=== PATIENT | female | born 1995 | race Asian ===

== ENCOUNTER 2020-01-18 18:25 | Emergency (ER) | payer BC, SELFPAY ==
[2020-01-18 18:28] VITALS: BP 131/79; PULSE 91; RESP 16; TEMP 37; O2SAT 100
--- NOTE | 2020-01-18 18:44 | ED.URI ---
HPI - URI/Sore Throat General Chief Complaint: Upper Respiratory Infection Stated Complaint: headache/sore throat/swollen glands/neck pain Time Seen by Provider: 01/18/20 18:40 Source: patient and RN notes reviewed Mode of arrival: ambulatory Limitations: no limitations History of Present Illness HPI Narrative: Patient presents today with a 1 month history of sore throat, headache, swollen glands, neck pain. Denies fever. At the beginning of her symptoms she was treated with 10 days of amoxicillin, but states towards the end of her course she did have a rash/reaction to it. She was seen yesterday at a [facility] clinic where a strep test was negative. [facility] will send swab off for culture. Patient's mother sent her here today for a mono test. She has tried no medication for symptoms prior to arrival. MD elicited complaint: sore throat Related Data Home Medications Medication Instructions Recorded Confirmed Control Pills 01/18/20 Allergies Allergy/AdvReac Type Severity Reaction Status Date / Time amoxicillin Allergy Rash Verified 01/18/20 18:38 Review of Systems Review of Systems: Narrative: CONSTITUTIONAL: Denies body aches, fever, chills, or sweats. Fatigue EYES: Denies visual changes, redness, or discharge. ENT: Denies rhinorrhea, congestion, or otalgia.+ Sore throat CARDIOVASCULAR: Denies chest pain, palpitations, or edema. RESPIRATORY: Denies cough or dyspnea. GASTROINTESTINAL: Denies abdominal pain, nausea, vomiting, or diarrhea. GENITOURINARY: Denies dysuria or hematuria. SKIN: Denies rash, itching, or wounds. Swollen glands of the neck MUSCULOSKELETAL: Denies back pain, joint pain. + Neck pain NEUROLOGIC: Denies numbness, tingling, or weakness.+ Headache PSYCH: Denies depression or anxiety. PMFSH Comments At time of signature, I have reviewed and agree with nursing past medical, surgical, social and family history unless otherwise noted. Please see nursing chart for further information. There is no relevant family history pertinent to the presenting complaint Exam Narrative: Exam Narrative: GENERAL: Well-appearing, well-nourished, and in no acute distress. HEAD: Normocephalic, atraumatic. EYES: EOMI. No redness or drainage. Conjunctivae normal. ENT: Mucous membranes pink and moist. Nares clear. No rhinorrhea. TMs normal bilaterally. Throat erythematous and mildly edematous with white exudate on the left tonsil. Uvula midline. NECK: Normal AROM. Supple. Left anterior and posterior cervical chain lymphadenopathy. CHEST: No respiratory distress. Clear to auscultation. HEART: Regular rate and rhythm. No murmur appreciated. Normal peripheral pulses. ABDOMEN: Soft, nontender, nondistended, normal active bowel sounds. MUSCULOSKELETAL: No bony tenderness. EXTREMITIES: Normal range of motion. No edema. SKIN: Warm, dry, no rash. NEURO: No focal deficits. Alert and oriented x3. Gait steady. PSYCH: Normal affect. No signs of depression or anxiety. Course Vital Signs Vital signs: Vital Signs Temperature 98.6 F 01/18/20 18:28 Pulse Rate 91 01/18/20 18:28 Respiratory Rate 16 01/18/20 18:28 Blood Pressure 131/79 01/18/20 18:28 Pulse Oximetry 100 01/18/20 18:28 Temperature 98.6 F 01/18/20 18:28 Pulse Rate 91 01/18/20 18:28 Respiratory Rate 16 01/18/20 18:28 Blood Pressure 131/79 01/18/20 18:28 Pulse Oximetry 100 01/18/20 18:28 Reviewed. Pt has been instructed to follow up with her PCP regarding her elevated blood pressure today. MDM - URI/Sore Throat Differential Diagnosis Differential diagnosis: Likely upper respiratory infection, viral infection, pharyngitis and other (Mononucleosis, strep throat) Lab Data Attestation: I reviewed the patient's lab results. Labs: [place] Screen Negative (Reference Range: Negative) Critical Care Time Critical Care Time Critical Care Time: No Dischar
== END 2020-01-18 19:07 | disposition home or self-care (01) ==
PROVIDERS: Emergency Provider Nurse Practitioner
DX: J02.9 Acute pharyngitis, unspecified (principal)
CPT/HCPCS: 86308; 99213; G0463

== ENCOUNTER 2021-07-21 17:34 | Emergency (ER) | payer OTHER, SELFPAY ==
[2021-07-21 17:53] VITALS: BP 125/75; PULSE 71; RESP 12; TEMP 36.7; O2SAT 100
--- NOTE | 2021-07-21 18:53 | ED.NAVMDI ---
HPI - Nausea/Vomiting/Diarrhea General Chief complaint: Nausea/Vomiting/Diarrhea Stated complaint: stomach pain/vomiting Source: patient and RN notes reviewed Limitations: no limitations History of Present Illness HPI Narrative: The vaccinated patient, previously mostly healthy non-smoker/rare drinker, presents with abdominal discomfort. Patient notes a very short onset a couple hours ago of first diarrhea x1 followed by nonbilious emesis x2. This is associated with preceding infraumbilical/suprapubic cramping. No blood, fever, travel, sick family, prior surgeries, vaginal discharge, frequency/urgency/dysuria;. No loss of taste/smell, CP, wheezing/sneezing, S OB; they declined later PCR testing. Dipstick urinalysis is noncontributory; discussed with patient since it is so very early in the course of the illness to return to hospital if worsens in any way. Related Data Allergies Allergy/AdvReac Type Severity Reaction Status Date / Time amoxicillin Allergy Rash Verified 07/21/21 17:55 Review of Systems Review of Systems: General/Constitutional: No weight loss,fever Eyes: N0: Redness,discharge Ears/Nose/Throat: No: Epistaxis,ear discharge Respiratory: Denies: Hemoptysis Gastrointestinal: Bleeding-rectal, REPORT vomiting Skin: No Lumps, eruption Neurologic: No Focal Weakness,Sz Hematologic: Denies: Petechiae/Purpura Psychiatric: No: Suicida ideationl All Other Systems: Reviewed and Negative PMFSH Comments At time of signature, agree with nursing past medical, surgical, social and family history. There is no relevant family history pertinent to the presenting complaint Exam Narrative: General Appearance: Well appearing, Conjunctiva clear Mouth/Throat: Normal appearing, Normal lips, Supple Respiratory: Airway patent, No respiratory distress Cardiovascular: RRR Abdomen: Soft, Non-tender, No massess, No organomegaly (no rebound/ surgical signs), Hyperactive bowel sounds Musculoskeletal: Full ROM Skin: Warm, Dry Neurological: A&O x3, CN II-X intact Psychiatric: Normal mood, Normal affect Course Vital Signs Vital signs: Vital Signs Temperature 98.0 F 07/21/21 17:53 Pulse Rate 71 07/21/21 17:53 Respiratory Rate 12 07/21/21 17:53 Blood Pressure 125/75 07/21/21 17:53 Pulse Oximetry 100 07/21/21 17:53 Temperature 98.0 F 07/21/21 17:53 Pulse Rate 71 07/21/21 17:53 Respiratory Rate 12 07/21/21 17:53 Blood Pressure 125/75 07/21/21 17:53 Pulse Oximetry 100 07/21/21 17:53 MDM - Nausea/Vomiting/Diarrhea Lab Data Labs: UCG Bedside Result Negative Reference Range: Negative Urine Glucose Negative Reference Range: Negative Urine Bilirubin Negative Reference Range: Negative Urine Ketone Negative Reference Range: Negative Urine Specific [place] 1.025 Reference Range:1.001-1.035 Urine Blood Negative Reference Range: Negative * * Urine pH 6.5 Reference Range: 5.0-9.0 Urine Protein Negative Reference Range: Negative Urine Urobilinogen 0.2 Reference Range: 0.2-1.0 Urine Nitrate Negative Reference Range: Negative Urine Leukocyte Negative Reference Range: Negative Urine Color
== END 2021-07-21 19:03 | disposition home or self-care (01) ==
PROVIDERS: Emergency Provider Emergency Medicine
DX: R11.10 Vomiting, unspecified (principal); R19.7 Diarrhea, unspecified
CPT/HCPCS: 81003; 81025; 99213; G0463

== ENCOUNTER 2021-11-22 11:23 | Emergency (ER) | payer OTHER, SELFPAY ==
--- NOTE | 2021-11-22 11:29 | ED.URI ---
HPI - URI/Sore Throat General Chief Complaint: Upper Respiratory Infection Stated Complaint: Covid Sx Time Seen by Provider: 11/22/21 11:33 Source: patient, family, RN notes reviewed and old records reviewed Mode of arrival: ambulatory Limitations: no limitations History of Present Illness HPI Narrative: 26-year-old female presents to the [facility] with complaints of a headache and dry cough since Friday, 3 days. States that her boyfriend tested positive at home for COVID-19. She did have COVID herself in August 2020. She is COVID vaccinated and flu vaccinated. She has only taken Tylenol for her headache. Denies any fevers, body aches, nausea vomiting or diarrhea. Denies any chest pain or abdominal pain. Does not appear acutely ill. Denies any blurry vision change in vision. No neurologic symptoms other than a headache Patient states that she is and sees Dr. Stewart. Patient's due date is June 07, 2022 patient is not having any concerns at this time. Discussed with patient that if she is she must go directly to the emergency room which she verbalized understanding. Patient is just wanting a COVID test MD elicited complaint: other (headache) Related Data Home Medications Medication Instructions Recorded Confirmed [id number] See Rx Instructions .ROUTE .COMPLEX 11/22/21 11/22/21 [Daily ] Allergies Allergy/AdvReac Type Severity Reaction Status Date / Time amoxicillin Allergy Rash Verified 11/22/21 11:38 Review of Systems Review of Systems: All systems reviewed & are unremarkable except as noted in HPI and below Constitutional: Constitutional: Reports no additional constitutional complaints, Denies chills, Denies fatigue, Denies fever(s) and Denies headache(s) Eyes: Eyes: Reports no additional eye complaints, Denies change in vision and Denies photophobia ENT: Reports system reviewed and no additional complaints, except as documented, Denies vertigo, Denies dizziness, Denies headache(s), Denies nasal congestion and Denies sore throat Cardiovascular: Cardiovascular: Reports no additional cardiovascular complaints, Denies chest pain, Denies syncope, Denies rapid heart rate and Denies dyspnea Respiratory: Respiratory: Reports as per HPI, Reports cough (Dry), Denies dyspnea and Denies wheezing Gastrointestinal: Gastrointestinal: Reports no additional gastrointestinal complaints, Denies abdominal pain, Denies diarrhea, Denies nausea and Denies vomiting Musculoskeletal: Musculoskeletal: Reports no additional musculoskeletal complaints, Denies back pain, Denies myalgias and Denies numbness Integumentary/Breasts: Skin/Breast: Reports system reviewed and no additional complaints, except as docu Neurologic: Reports as per HPI, Denies vertigo, Denies dizziness, Denies syncope, Reports headache(s) (Generalized), Denies focal weakness and Denies numbness Psychiatric: Psychiatric: Reports no additional psychiatric complaints Allergic/Immunologic: Allergic/Immunologic: Reports no additional allergic/immunologic complaints and Denies wheezing PMFSH Past Medical History Medical History (Updated 11/22/21 @ 12:07 by Hien Carlisle) No significant medical problems Surgical History Surgical History (Updated 11/22/21 @ 12:07 by Hien Carlisle) No significant past surgical history Social History Social History (Updated 11/22/21 @ 12:07 by Hien Carlisle) Living arrangements: with family Gender identity (if verbalized by the patient): Female Comments At the time of my signature, I reviewed and agree with the nursing past medical, surgical, social, and family history. There is no relevant family history pertinent to the patient complaint. Exam Const: General: cooperative, healthy appearing, no acute distress, well developed and alert Nutritional Appearance: well nourished Orientation/consciousness: patient oriented x3 Limitations: no limitations HENMT: Head: normal to
[2021-11-22 11:33] VITALS: BP 130/83; PULSE 79; RESP 16; TEMP 36.8; O2SAT 100
[2021-11-24 18:18] LABS: SARS-CoV-2 RNA PCR Negative
== END 2021-11-22 11:47 | disposition home or self-care (01) ==
PROVIDERS: Emergency Provider Nurse Practitioner
DX: O90.89 Other complications of the puerperium, not elsewhere classified (principal); R51.9 Headache, unspecified; Z20.822 Contact with and (suspected) exposure to COVID-19
CPT/HCPCS: 99213; C9803; G0463; U0003; U0005

== ENCOUNTER 2022-06-07 06:06 | Inpatient (IN) | payer OTHER, SELFPAY ==
[2022-06-07] VITALS (115 sets, daily range): BP systolic 105–138; BP diastolic 55–110; PULSE 57–148; RESP 16–18; TEMP 36.3–37; O2SAT 86–100; BMI 27.3
--- NOTE | 2022-06-07 06:40 | PM.IMHP ---
H&P: HPI History of Present Illness Date/Time: 06/07/22 06:40 Chief Complaint: induction of labor Narrative: Gio is a 27yo @ 40.1wks (ELIZA 06/06/22) who presents for elective induction of labor. She has been 4cm for the last two weeks. She has been having occasional back cramping/contractions. No VB or LOF. Good movement. 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 Gender identity (if verbalized by the patient): Female Sexual Orientation (if Verbalized by the Patient): Straight or Heterosexual Spiritual care concerns: No Meds Home Medications and Allergies Home Medications Medication Instructions Recorded Confirmed Type vits 75-iron 28 mg-folic See Rx Instructions .Route .COMPLEX 11/22/21 05/16/22 History acid 800 mcg-omega3 440 mg oral pack magnesium oxide 400 mg PO DAILY #90 caps 12/27/21 05/16/22 Rx riboflavin (vitamin B2) 400 mg 400 mg PO DAILY #30 tabs 04/29/22 05/16/22 Rx tablet ferrous sulfate 325 mg (65 mg 325 mg PO DAILY 05/07/22 05/16/22 History iron) tablet Allergies Allergy/AdvReac Type Severity Reaction Status Date / Time amoxicillin Allergy Rash Verified 05/28/22 08:33 Exam Const: General: cooperative, healthy appearing, comfortable and no acute distress Resp: Effort & Inspection: normal respiratory effort Cardio: Rate: regular rate GI: Inspection: normal to inspection GI Palp: No abdominal tenderness and Yes Soft to palpation : Other: FHT's: 130's/ moderate variabilty/ no accels/ no decels - cat 1 TOCO: ctx's q 5-8min Cervix: 4/80/-2 Membranes: intact Skin: General skin exam: normal color Neuro: General: patient oriented x3 Extrem: General: normal to inspection Psych: Appearance: grossly normal Affect: normal affect Attitude: cooperative Assessment and Plan Assessment and plan (1) Encounter for elective induction of labor: Code(s): Z34.90 - Encounter for supervision of normal , unspecified, unspecified trimester Status: Acute (2) Gestational thrombocytopenia: Code(s): O99.119 - Other diseases of the blood and blood-forming organs and certain disorders involving the immune mechanism complicating , unspecified trimester; D69.6 - Thrombocytopenia, unspecified Status: Acute Plan - Pitocin per protocol - GBS negative - continuous monitoring; currently reassuring - Anesthesia consult PRN pain
--- NOTE | 2022-06-07 06:48 | WPDHPUPDATE1 ---
History and Physical Update Update Date/Time: 06/07/22 06:48 History and Physical has been reviewed, including an updated exam of the patient. There are NO changes in the patient's condition. Risks, benefits, and alternatives have been discussed and questions answered. Patient agrees to proceed with procedure.
--- NOTE | 2022-06-07 06:56 | LDADM ---
This patient, Gio Glover, was admitted to Labor/Delivery/Recovery 105 on 06/07/22 at 06:06. Plans for labor, pain management and were discussed with patient. Patient/family oriented to hospital policies and general routines including ID bracelet, bed and alarms, visiting hours, pain management, procedures, bathroom and other care routines, personal items, smoking policy, room service/diet and guest tray routines, infant security routines, and visiting hours. Patient/Family are encouraged to report perceived risks to care and to ask questions if they do not understand what they are told or what they should do. See OBIX for further documentation.
[2022-06-07 07:16] LABS: Basophils Percent Auto 0.5 % (0.2-1.2); Eosinophils Absolute Auto 0.1 K/mm3 (0-0.3); Eosinophils Percent Auto 0.8 % (0-4.4); Hemoglobin 11.9 g/dL (12.0-15.0); Immature Granulocyte Absolute 0.15 K/mm3 (0.00-0.031); Immature Granulocyte Percent A 1.7 % (0-0.5); Lymphocytes Absolute Auto 2.07 K/mm3 (0.9-3.2); Lymphocytes Percent Auto 23.5 % (18.3-44.2); Mean Corpuscular Hemoglobin 29.4 pg (26-34); Mean Corpuscular Volume 86.4 fl (80-100); Mean Platelet Volume 9.1 fl (7.4-10.4); Monocytes Absolute Auto 0.6 K/mm3 (0.1-0.6); Monocytes Percent Auto 7.3 % (2.6-8.5); Neutrophils Absolute Auto 5.8 K/mm3 (1.3-6.7); Neutrophils Percent Auto 66.2 % (45.5-73.1); Platelet Count Result 137 k/mm3 (150-375); Red Blood Count 4.05 M/mm3 (4.2-5.4); Red Cell Distribution Width 12.3 % (11.5-14.5); White Blood Count 8.8 K/mm3 (4.5-10.0)
[2022-06-07] MEDS: LACTATED RINGERS 1,000 ML 125 ML IV CONT ×3 (07:28→10:30)
[2022-06-07] MEDS: OXYTOCIN 30 UNITS/NS 500 ML 30 UNITS/500 ML BAG 6 UNITS IV CONT (07:29)
--- NOTE | 2022-06-07 07:45 | PM.OBPNLAB ---
Pain Control Date/time seen: 06/07/22 07:45 Pain control: tolerating well Pelvic Exam Dilation (cm): 4 Effacement (%): 80 station: -2 Amniotic membrane status: Ruptured (clear, AROM 0742) Contractions Monitor mode: External Contraction frequency: 5 Status status: Category l Assessment and Plan Pitocin rate (mU/min): 2 Assessment: induction ongoing Plan: continuous present management
--- NOTE | 2022-06-07 08:06 | WPDANESEPPF ---
Anes - Initial Pre Proc Eval Date/Time: 06/07/22 08:06 Surgeon: Bette Stewart MD Pre Op Diagnosis: Induction of Labor Patient Data Age: 27 Gender: F Height: 1.68 m Weight: 77 kg Last Vital Signs Pulse 81 06/07/22 07:46 BP 130/74 06/07/22 07:46 Allergies Allergy/AdvReac Type Severity Reaction Status Date / Time amoxicillin Allergy Rash Verified 05/28/22 08:33 Home Medications Medication Instructions Recorded Confirmed Type vits 75-iron 28 mg-folic See Rx Instructions .Route .COMPLEX 11/22/21 05/16/22 History acid 800 mcg-omega3 440 mg oral pack magnesium oxide 400 mg PO DAILY #90 caps 12/27/21 05/16/22 Rx riboflavin (vitamin B2) 400 mg 400 mg PO DAILY #30 tabs 04/29/22 05/16/22 Rx tablet ferrous sulfate 325 mg (65 mg 325 mg PO DAILY 05/07/22 05/16/22 History iron) tablet Laboratory Tests 06/07/22 06/07/22 06/07/22 06:33 06:33 06:33 WBC 8.8 K/mm3 K/mm3 (4.5-10.0) RBC 4.05 M/mm3 L M/mm3 (4.2-5.4) Hgb 11.9 g/dL L g/dL (12.0-15.0) Hct 35.0 % L % (37.0-47.0) MCV 86.4 fl fl (80-100) MCH 29.4 pg pg (26-34) MCHC 34.0 g/dl g/dl (32-36) RDW 12.3 % % (11.5-14.5) Plt Count 137 k/mm3 L k/mm3 (150-375) MPV 9.1 fl fl (7.4-10.4) Immature Gran % (Auto) 1.7 % H % (0-0.5) Neut % (Auto) 66.2 % % (45.5-73.1) Lymph % (Auto) 23.5 % % (18.3-44.2) [place] % (Auto) 7.3 % % (2.6-8.5) Eos % (Auto) 0.8 % % (0-4.4) Baso % (Auto) 0.5 % % (0.2-1.2) Lymph # (Auto) 2.07 K/mm3 K/mm3 (0.9-3.2) [place] # (Auto) 0.6 K/mm3 K/mm3 (0.1-0.6) Eos # (Auto) 0.1 K/mm3 K/mm3 (0-0.3) Baso # (Auto) 0.0 K/mm3 K/mm3 (0.0-0.1) Abs Immat Gran (auto) 0.15 K/mm3 H K/mm3 (0.00-0.031) Absolute Neuts (auto) 5.8 K/mm3 K/mm3 (1.3-6.7) Absolute Nucleated RBC 0.0 K/mm3 K/mm3 (0.0-0.012) Nucleated RBC % 0.0 % % (0.0-0.2) RPR Pending HIV 1&2 Ab/P24 Ag 4thGn Pending Patient hx anesthesia problems: none Family hx anesthesia problems: none Results Review: All pre-operative results and documents have been reviewed as part of the pre-operative evaluation. 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 Gender identity (if verbalized by the patient): Female Sexual Orientation (if Verbalized by the Patient): Straight or Heterosexual Spiritual care concerns: No Anes - Eval Final PreProcedure Day of Procedure 06/07/22 08:06 Patient weight: normal Heart: regular rate and rhythm Lungs: clear to auscultation Airway: Mallampati scale class 1 Neurological: alert and oriented Last oral intake: 2 hours ASA classification: II Emergent: yes Anesthesia type and monitoring: general ETT and standard monitoring Results Review: All pre-operative results and documents have been reviewed as part of the pre-operative evaluation. Informed Consent: The patient's anesthetic plan of GA with ETT vs Spinal depending on heart tones and discussion with Dr. Stewart and its attendant risks and benefits were discussed with the patient/family/POA. Questions were solicited and answers provided to the satisfaction of the
--- NOTE | 2022-06-07 08:14 | PM.OBPNLAB ---
Pain Control Date/time seen: 06/07/22 08:14 Comments: heart decel to 100 for 8 min then to 80 for 2 minutes. Pitocin was stopped, multiple position changes, and oxygen were place and had return to baseline of 150s with variability. Pelvic Exam Dilation (cm): 5 Effacement (%): 80 station: -2 Amniotic membrane status: Ruptured (clear, AROM 0742) Contractions Monitor mode: External Contraction frequency: 5 Contraction pattern: Irregular Contraction intensity: Moderate Status status: Category ll Assessment and Plan Pitocin rate (mU/min): 0 Comments: - will get epidural now; already made change from 4 to 5cm - if any further decels noted, will proceed with , but if reassuring, will continue augmentation after 30-45 min of reassuring tracing.
[2022-06-07 08:20] LABS: HIV 1/2 Ab P24 Ag Result Negative (Negative)
[2022-06-07] MEDS: TERBUTALINE SULFATE 1 MG/ML VIAL (13:07)
[2022-06-07] MEDS: OXYTOCIN 30 UNITS/NS 500 ML 30 UNITS/500 ML BAG 125 UNITS IV CONT (14:11)
--- NOTE | 2022-06-07 14:25 | PM.OBPRVD ---
OB - Delivery Note Procedure Delivery date: 06/07/22 Events: Elective Induction of Labor Intrapartal Events: Decelerations Induction method: AROM Delivery augmentation: Pitocin Delivery monitor: External FHT and External Uterine Route of delivery: Laceration Description: None Specimen: No Quantitative Blood Loss (ml): 300 Anesthesia type: Epidural Disposition: Floor Baby Date of : 06/07/22 Time of : 13:34 Weeks of gestation at delivery: 40 (.1) gender: Female Weight (pounds): 6 Weight (ounces): 14 presentation: vertex position: Left Occiput Anterior Placenta delivery description: Expressed Cord Vessel Description: 3 Vessels and Delayed Cord Clamping score one minute: 9 score five minutes: 9 Narrative: Gio rapidly progressed to complete dilation. Due to intermittent decelerations, we immediately began pushing. During pushing we tried multiple different positions to help keep baby happy. At one point, she did decelerate to the 80s for approximately 4 minutes. All intrauterine resuscitation was started (oxygen, position change, pitocin was at 2mU was discontinued and a dose of terbutaline was given). Baby did recover shortly after that and she continued pushing on her side. She pushed for a total of 1 hour 20 minutes and delivered the head over intact perineum. She easily delivered the infants shoulder and body; no cord was noted, but her left arm/hand was noted to be pinned against her chest. The infant was immediately placed skin to skin and had spontaneous cry. Delay cord clamping was performed. The umbilical cord was then clamped and cut. A segment was collected for cord blood. The remaining cord blood was collected for typing. With pitocin running and gentle traction on the cord, the placenta delivered without difficulty. A large gush of bleeding was noted and bimanual exam revealed a slightly boggy uterus that did respond to massage. She was examined and no lacerations were noted. She continued to remain firm with minimal bleeding. Sponge, lap, instrument, and needle counts were correct at the end of the procedure. Mom and baby were left freire in the birthin suite in a stable condition. [facility] Delivery Billing Delivery Delivery: Delivery Charge
--- NOTE | 2022-06-07 16:19 | OBPPTRN ---
Patient transferred to post room #279 via wheelchair. Support person present. Oriented to unit, room, information board, rooming in, admission packet and security measures. Patient verbalizes understanding.
[2022-06-07 16:31] LABS: Rapid Plasma Reagin Non-Reactive (NonReactive)
[2022-06-07] MEDS: IBUPROFEN 600 MG TABLET PO (17:02)
[2022-06-07] MEDS: BENZOCAINE 20% AER SPR (*SP) 56 GM CAN 1 SPRAY TOPICAL (19:15)
[2022-06-07] MEDS: WITCH HAZEL 40 PADS 1 PAD TOPICAL (19:15)
[2022-06-08] VITALS: BP 118/77; PULSE 78; RESP 14; TEMP 36.7; O2SAT 98
[2022-06-08 04:30] VITALS: BP 125/77; PULSE 83; RESP 16; TEMP 36.3; O2SAT 98
[2022-06-08 05:04] LABS: Hematocrit 29.4 % (37.0-47.0); Hemoglobin 9.5 g/dL (12.0-15.0)
[2022-06-08] MEDS: MULTIVIT/MIN/PREN/FOL AC/IRON TABLET 1 TAB PO (08:13)
[2022-06-08] MEDS: DOCUSATE SODIUM 100 MG CAPSULE PO (08:13)
[2022-06-08 08:15] VITALS: BP 123/81; PULSE 63; RESP 18; TEMP 36.9; O2SAT 99
[2022-06-08] MEDS: POLYSACCHARIDE IRON COMPLEX 150 MG CAPSULE PO (08:16)
--- NOTE | 2022-06-08 10:30 | P.PNOB_ITS ---
OB - PN: Subj Subjective Date/time seen: 06/08/22 10:30 Narrative: PPD#1 Gio reports doing well today. 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 Her pain is controlled. She is tolerating regular diet, voiding, passing gas, and ambulating without issues. She is breast feeding. OB - PN: Obj Data Labs CBC & Chem 7: 06/08/22 04:57 Labs: Laboratory Results - last 24 hr 06/07/22 06/08/22 06:33 04:57 Hgb 9.5 L Hct 29.4 L RPR Non-reactive OB - PN A/P Assessment and Plan (1) Normal vaginal delivery of first : Code(s): O80 - Encounter for full-term uncomplicated delivery Status: Acute Plan day: 1 Plan: routine care and discharge home Comments: - Pelvic rest; take meds as prescribed - ER return precautions: fever, n/v/abd pain, bleeding, HTN Time Spent With Patient Time: Total time spent is greater than 50% in coordination of care (as documented) at patient's floor/unit and/or counseling patient: Review of Systems Constitutional: Constitutional: Denies chills, Denies fever(s) and Denies headache(s) Eyes: Eyes: Denies change in vision ENT: Denies dizziness and Denies headache(s) Cardiovascular: Cardiovascular: Denies chest pain, Denies palpitations and Denies dyspnea Respiratory: Respiratory: Denies cough and Denies dyspnea Gastrointestinal: Gastrointestinal: Denies nausea and Denies vomiting Neurologic: Denies dizziness and Denies headache(s) Endocrine: Endocrine: Denies palpitations Exam Const: General: cooperative, healthy appearing, comfortable and no acute distress Orientation/consciousness: patient oriented x3 Resp: Effort & Inspection: normal respiratory effort Auscultation: clear to auscultation bilaterally Cardio: Rate: regular rate GI: Inspection: non-distended GI Palp: No abdominal tenderness and Yes Soft to palpation Auscultation: normal bowel sounds : Other: fundus firm Skin: General skin exam: normal color Neuro: General: patient oriented x3 Extrem: General: normal to inspection Psych: Appearance: grossly normal Affect: normal affect Attitude: cooperative
[2022-06-08 11:30] VITALS: BP 116/71; PULSE 87; RESP 16; TEMP 36.7; O2SAT 100
--- NOTE | 2022-06-08 14:27 | PC.NURSE ---
Patient viewed the discharge video Mother & Baby Care, The First Two Weeks . Patient was given the opportunity and encouraged to ask questions. Patient verbalized understanding of information shared and has been given the mother/baby guide for home reference.
[2022-06-10 10:26] VITALS: BP 124/78; PULSE 79; RESP 18; TEMP 36.8; O2SAT 99
--- NOTE | 2022-06-11 07:17 | PM.OBDSVD ---
DS: Admitting Diagnosis Discharge Date 06/08/22 Admitting Diagnosis Elective induction of labor DS: Discharge Diagnosis Discharge Diagnosis (1) Normal vaginal delivery of first : Code(s): O80 - Encounter for full-term uncomplicated delivery Status: Acute (2) Gestational thrombocytopenia: Code(s): O99.119 - Other diseases of the blood and blood-forming organs and certain disorders involving the immune mechanism complicating , unspecified trimester; D69.6 - Thrombocytopenia, unspecified Status: Acute OB - DS: Summary OB Procedures : Ultrasound OB Procedures Intrapartum: Spontaneous Vag Delivery OB Procedures: : None Peripartum Data Infant Delivery Method: Natural Vaginal Laceration Description: None complications: none [place] 1: Gender: Female Disposition of : home Status at Discharge Functional status at discharge: independent ambulation Overall status at discharge: patient is back to baseline Time Spent with Patient Time attestation: Total time spent providing and/or coordinating discharge services: Time spent: Less than 30 minutes Exam Const: General: cooperative, healthy appearing, comfortable and no acute distress Orientation/consciousness: patient oriented x3 Resp: Effort & Inspection: normal respiratory effort Auscultation: clear to auscultation bilaterally Cardio: Rate: regular rate GI: Inspection: non-distended GI Palp: No abdominal tenderness and Yes Soft to palpation Auscultation: normal bowel sounds : Other: fundus firm Skin: General skin exam: normal color Neuro: General: patient oriented x3 Extrem: General: normal to inspection Psych: Appearance: grossly normal Affect: normal affect Attitude: cooperative Discharge Plan Discharge Attending physician on discharge: Bette Stewart Discharging Clinician: Bette Stewart Anticipated Discharge Date/Time: 06/08/22 16:00 Patient Disposition: Home, Self-Care Activity: may shower and pelvic rest Diet: regular Discharge Instructions: Education: Mom and Baby Guide Given to: Mother Follow-Up: Call your delivering provider's office for an appointment to be seen in: 4 Weeks [facility]. Appointment Date/Time: June 10, 2022 at 10:00 am What to expect at your follow-up visit: Blood Pressure Check Physical Assessment Call [phone] if you are unable to keep your appointment time. BREAST CARE: * Wear a snug supportive bra. * For engorgement discomfort: Breast Feeding: * Apply warm moist washcloths * Express milk as needed to relieve engorgement * Wear loose clothing Bottle Feeding: * May apply ice packs * For sore nipples: * Identify correct latch-on * Apply warm moist washcloths before and after nursing * Air dry nipples after nursing * May apply Lansinoh cream to nipples EPISIOTOMY/PERINEAL CARE: * Until bleeding stops, use your deshaun bottle after urinating * Change your pad frequently throughout the day * You may take sitz baths several times a day (fill your bathtub with warm water and soak for 20 minutes.) Do NOT bathe in the water * No tub baths until seen by your physician - You may shower ACTIVITY: * Rest as much as possible. * Do not exercise or lift anything heavier than your baby (such as laundry or other children.) * Avoid stairs or driving as much as possible. * Do not put anything into the vagina. No douching, tampons, or sexual activity until seen by physician. NOTIFY PHYSICIAN IF YOU HAVE ANY QUESTIONS OR IF ANY OF THE FOLLOWING SYMPTOMS OCCUR: * If your episiotomy or incision becomes red, swollen, or more painful than what you have experienced in the hospital. * If your vaginal bleeding becomes foul smelling. * If your vagi
== END 2022-06-08 15:44 | disposition home or self-care (01) | DRG 807 ==
LOC: ANHLDR 06:09 → ANHOB2 16:29
PROVIDERS: Admitting Provider Obstetrics & Gynecology; Visit Provider Obstetrics & Gynecology
DX: O99.12 Other diseases of the blood and blood-forming organs and certain disorders involving the immune mechanism complicating childbirth (principal); Z37.0 Single live birth; O76 Abnormality in fetal heart rate and rhythm complicating labor and delivery; D69.6 Thrombocytopenia, unspecified; Z3A.40 40 weeks gestation of pregnancy
CPT/HCPCS: 36415; 85014; 85018; 85025; 86592; 86703; 86850; 86900; 86901; A9270; G0432; J2590; J2795; J3105; J7120